=== PATIENT | female | born 1990 | race Caucasian/White ===

== ENCOUNTER 2017-04-05 11:13 | Emergency (ER) | payer SELFPAY ==
[2017-04-05 11:21] VITALS: BP 129/101
[2017-04-05] MEDS ORDERED: Sodium Chloride 0.9% 1,000 ML ONE (11:40)
[2017-04-05] MEDS ORDERED: Ondansetron 4 MG/2 ML SDV IVPUSH ONE (11:52)
[2017-04-05] MEDS ORDERED: Alum Hydrox/Mag Hydrox/Simeth 30 ML, Lidocaine 2% 15 ML PO STA ×2 (11:52)
[2017-04-05] MEDS ORDERED: Sodium Chloride 0.9% 1,000 ML IV ONE (12:24)
[2017-04-05] MEDS ORDERED: Potassium Chloride 10 MEQ in Premix Bag 1 BAG IV STA (13:04)
[2017-04-05] MEDS ORDERED: Aluminum Hydroxide/Magnesium Hydroxide/Simethicone Susp 30 ML Cup PO ONE (13:18)
--- NOTE | 2017-04-05 13:18 | EDM.PDOC ---
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 Her last drink was around 1:00 to 2:00 this morning. Her last period of sobriety was from 03/30/2017 through 04/01/2017. She states that she vomited last night, then developed retrosternal chest pain around 6:00 this morning. She is unable to describe the character of her pain, other than it is a combination of sharp, burning, and stabbing. She took some [id number] "immune" pills, which did not help. Here in the ED, the patient states that she still has some nausea and chest pain , and feels stressed. She states that she has not previously been to an inpatient alcohol treatment center, although she has previously gone to outpatient treatment, such as and a substance abuse facility in [place]. The last time she attended , however, was when she was 21 years old, and she has received any treatment since moving to [place] a few years ago. She states that she has never been hospitalized related to her alcoholism. The patient does not have a PCP. Middle Chest Pain Score (Numeric/FACES): 8 - Related Data Allergies Allergy/AdvReac Type Severity Reaction Status Date / Time No Known Allergies Allergy Verified 04/05/17 11:21 Home Meds: Home Meds Ondansetron [Zofran ODT] 4 mg PO Q8H PRN #10 tab.dis 04/05/17 [Rx] Past Medical History Psychiatric History: Reports: Addiction (Binge alcoholism) Social & Family History - Tobacco Use Smoking Status *Q: Current Some Day Smoker - Alcohol Use Alcohol Use History: Yes Days Per Week of Alcohol Use: 7 Number of Drinks Per Day: 5 Total Drinks Per Week: 35 Alcohol Use Frequency: Binges - Recreational Drug Use Recreational Drug Use: No - Living Situation & Occupation Living situation: Reports: , with Spouse 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) ED ROS GENERAL - Review of Systems Review Of Systems: See Below Constitutional: Reports: No Symptoms HEENT: Reports: No Symptoms Respiratory: Reports: Cough (occasional) Cardiovascular: Reports: No Symptoms Endocrine: Reports: No Symptoms GI/Abdominal: Reports: No Symptoms : Reports: No Symptoms Musculoskeletal: Reports: No Symptoms Skin: Reports: No Symptoms Neurological: Reports: No Symptoms Psychiatric: Reports: No Symptoms Hematologic/Lymphatic: Reports: No Symptoms Immunologic: Reports: No Symptoms ED EXAM, GENERAL - Physical Exam Exam: See Below Exam Limited By: No Limitations General Appearance: Alert, WD/WN, Anxious (tremulous) Eye Exam: Bilateral Eye: Normal Inspection Ears: Normal External Exam, Hearing Grossly Normal Nose: Normal Inspection, No Blood Throat/Mouth: Normal Inspection, Normal Lips, Normal Voice, No Airway Compromise Head: Atraumatic, Normocephalic Neck: Normal Inspection, Full Range of Motion Respiratory/Chest: No Respiratory Distress, Lungs Clear, Normal Breath Sounds, No Accessory Muscle Use Cardiovascular: Normal Peripheral Pulses, Regular Rate, Rhythm, No Gallop, No JVD, No Murmur, No Rub Peripheral Pulses: 4+: Radial (L), Radial (R) GI/Abdominal: Normal Bowel Sounds, Soft, Non-Tender, No Organomegaly, No Distention, No Abnormal Bruit, No Mass (Female) Exam: Deferred Rectal (Female) Exam: Deferred Back Exam: Normal Inspection, Full Range of Motion, NT Extremities: Normal Inspection, Normal Range of Motion, No Pedal Edema, Normal Capillary Refill Neurological: Alert, Oriented, Normal Cognition, No Motor/Sensory Deficits Psychiatric: Normal Affect, Anxious Skin Exam: Warm, Dry, Intact, Normal Color, No Rash Lymphatic: No Adenopathy Course - Vital Signs Last Recorded V/S: Last Vital Signs Temp 36.6 C 04/05/17 11:17 Pulse 137 H 04/05/17 11:17 Resp 16 04/05/17 11:17 BP 129/101 H 04/05/17 11:17 Pulse Ox 97 04/05/17 11:17 - Orders/Labs/Meds Labs: Laboratory Tests 04/05/17 04/05/17 04/05/17 Range/Units 11:28 11:28 11:28 WBC 10.81 H (3.98-10.04) K/mm3 RBC 4.43 (3.98-5.22) M/mm3 Hgb 13.7 (11.2-15.7) gm/L Hct 41.1 (34.1-44.9) % MCV 92.8 (79.4-94.8) fl MCH 30.9 (25.6-32.2) pg MCHC 33.3 (32.2-35.5) g/dl RDW Std Deviation 53.5 H (36.4-46.3) fL Plt Count 351 (182-369) K/mm3 MPV 10.0 (9.4-12.3) fl Neut % (Auto) 93.9 H (34.0-71.1) % Lymph % (Auto) 1.7 L (19.3-51.7) % Mccormick % (Auto) 4.1 L (4.7-12.5) % Eos % (Auto) 0 L (0.7-5.8) Baso % (Auto) 0.2 (0.1-1.2) % Neut # (Auto) 10.16 H (1.56-6.13) K/mm3 Lymph # (Auto) 0.18 L (1.18-3.74) K/mm3 Mccormick # (Auto) 0.44 H (0.24-0.36) K/mm3 Eos # (Auto) 0.00 L (0.04-0.36) K/mm3 Baso # (Auto) 0.02 (0.01-0.08) K/mm3 Manual Slide Review Abnormal smear Sodium 137 (136-145) mEq/L Potassium 3.1 L (3.5-5.1) mEq/L Chloride 91 L (98-107) mEq/L Carbon Dioxide 25 (21-32) mEq/L Anion Gap 24.1 H (5-15) BUN 11 (7-18) mg/dL Creatinine 0.9 (0.55-1.02) mg/dL Est Cr Clr Drug Dosing 79.34 mL/min Estimated GFR (MDRD) > 60 (>60) mL/min BUN/Creatinine Ratio 12.2 L (14-18) Glucose 137 H (74-106) mg/dL Calcium 10.8 H (8.5-10.1) mg/dL Total Bilirubin 1.4 H (0.2-1.0) mg/dL AST 248 H (15-37) U/L ALT 309 H (14-59) U/L Alkaline Phosphatase 87 (46-116) U/L Total Protein 9.5 H (6.4-8.2) g/dl Albumin 5.3 H (3.4-5.0) g/dl Globulin 4.2 gm/dL Albumin/Globulin Ratio 1.3 (1-2) Lipase 672 H (73-393) U/L Urine Color (Yellow) Urine Appearance (Clear) Urine pH (5.0-8.0) Ur Specific [place] (1.005-1.030) Urine Protein (Negative) Urine Glucose (UA) (Negative) Urine Ketones (Negative) Urine Occult Blood (Negative) Urine Nitrite (Negative) Urine Bilirubin (Negative) Urine Urobilinogen (0.2-1.0) Ur Leukocyte Esterase (Negative) Urine RBC (0-5) /hpf Urine WBC (0-5) /hpf Ur Epithelial Cells (0-5) /hpf Urine Bacteria (FEW) /hpf Urine Mucus (FEW) /hpf Urine HCG, Qual (NEGATIVE) Urine Opiates Screen (NEGATIVE) Ur Buprenorphine Scrn (NEGATIVE) Ur Oxycodone Screen (NEGATIVE) Urine Methadone Screen (NEGATIVE) Ur Propoxyphene Screen (NEGATIVE) Ur Barbiturates Screen (NEGATIVE) Ur Tricyclics Screen (NEGATIVE) Ur Phencyclidine Scrn (NEGATIVE) Ur Amphetamine Screen (NEGATIVE) U Methamphetamines Scrn (NEGATIVE) U Benzodiazepines Scrn (NEGATIVE) U Cocaine Metab Screen (NEGATIVE) U Marijuana (THC) Screen (NEGATIVE) Ethyl Alcohol 0.01 (0.00) gm% 04/05/17 04/05/17 04/05/17 Range/Units 12:10 12:10 12:10 WBC (3.98-10.04) K/mm3 RBC (3.98-5.22) M/mm3 Hgb (11.2-15.7) gm/L Hct (34.1-44.9) % MCV (79.4-94.8) fl MCH (25.6-32.2) pg MCHC (32.2-35.5) g/dl RDW Std Deviation (36.4-46.3) fL Plt Count (182-369) K/mm3 MPV (9.4-12.3) fl Neut % (Auto) (34.0-71.1) % Lymph % (Auto) (19.3-51.7) % Mccormick % (Auto) (4.7-12.5) % Eos % (Auto) (0.7-5.8) Baso % (Auto) (0.1-1.2) % Neut # (Auto) (1.56-6.13) K/mm3 Lymph # (Auto) (1.18-3.74) K/mm3 Mccormick # (Auto) (0.24-0.36) K/mm3 Eos # (Auto) (0.04-0.36) K/mm3 Baso # (Auto) (0.01-0.08) K/mm3 Manual Slide Review Sodium (136-145) mEq/L Potassium (3.5-5.1) mEq/L Chloride (98-107) mEq/L Carbon Dioxide (21-32) mEq/L Anion Gap (5-15) BUN (7-18) mg/dL Creatinine (0.55-1.02) mg/dL Est Cr Clr Drug Dosing mL/min Estimated GFR (MDRD) (>60) mL/min BUN/Creatinine Ratio (14-18) Glucose (74-106) mg/dL Calcium (8.5-10.1) mg/dL Total Bilirubin (0.2-1.0) mg/dL AST (15-37) U/L ALT (14-59) U/L Alkaline Phosphatase (46-116) U/L Total Protein (6.4-8.2) g/dl Albumin (3.4-5.0) g/dl Globulin gm/dL Albumin/Globulin Ratio (1-2) Lipase (73-393) U/L Urine Color Yellow (Yellow) Urine Appearance Clear (Clear) Urine pH 6.0 (5.0-8.0) Ur Specific [place] > or = 1.030 (1.005-1.030) Urine Protein 3+ H (Negative) Urine Glucose (UA) Negative (Negative) Urine Ketones 3+ H (Negative) Urine Occult Blood Negative (Negative) Urine Nitrite Negative (Negative) Urine Bilirubin Negative (Negative) Urine Urobilinogen 0.2 (0.2-1.0) Ur Leukocyte Esterase Negative (Negative) Urine RBC 0-5 (0-5) /hpf Urine WBC 5-10 H (0-5) /hpf Ur Epithelial Cells 5-10 H (0-5) /hpf Urine Bacteria Few (FEW) /hpf Urine Mucus Many H (FEW) /hpf Urine HCG, Qual Negative (NEGATIVE) Urine Opiates Screen Negative (NEGATIVE) Ur Buprenorphine Scrn Negative (NEGATIVE) Ur Oxycodone Screen Negative (NEGATIVE) Urine Methadone Screen Negative (NEGATIVE) Ur Propoxyphene Screen Negative (NEGATIVE) Ur Barbiturates Screen Negative (NEGATIVE) Ur Tricyclics Screen Negative (NEGATIVE) Ur Phencyclidine Scrn Negative (NEGATIVE) Ur Amphetamine Screen Negative (NEGATIVE) U Methamphetamines Scrn Negative (NEGATIVE) U Benzodiazepines Scrn Negative (NEGATIVE) U Cocaine Metab Screen Negative (NEGATIVE) U Marijuana (THC) Screen Negative (NEGATIVE) Ethyl Alcohol (0.00) gm% Meds: Medications Discontinued Medications Generic Name Dose Route Start Last Admin Trade Name Freq PRN Reason Stop Dose Admin Al Hydroxide/Mg Hydroxide 30 ml 04/05/17 13:18 04/05/17 13:29 Mag-Al Plus PO 04/05/17 13:19 30 ml ONETIME ONE Administration Al Hydroxide/Mg Hydroxide 30 0 ml 04/05/17 11:52 04/05/17 12:09 ml/ Lidocaine HCl 15 ml PO 04/05/17 11:53 45 ml ONETIME STA Administration Sodium Chloride Confirm 04/05/17 11:40 04/05/17 11:56 Normal Saline Administered 04/05/17 11:41 Not Given Dose 1,000 mls @ as directed .ROUTE .STK-MED ONE Sodium Chloride 1,000 mls @ 999 mls/hr 04/05/17 12:24 04/05/17 12:26 Normal Saline IV 04/05/17 13:24 999 mls/hr ONETIME ONE Administration Potassium Chloride 10 meq/ 100 mls @ 100 mls/hr 04/05/17 13:04 04/05/17 13:15 Premix IV 04/05/17 14:03 100 mls/hr ONETIME STA Administration Ondansetron HCl 4 mg 04/05/17 11:52 04/05/17 11:58 Zofran IVPUSH 04/05/17 11:53 4 mg ONETIME ONE Administration - Re-Assessments/Exams Free Text/Narrative Re-Assessment/Exam: 04/05/17 13:17 The patient states that the GI cocktail that she received earlier improved her symptoms significantly, although she has some residual heartburn. I will order some additional Maalox. Her potassium returned low at 3.1. Because oral potassium can cause nausea, and the patient is already suffering from nausea, I have ordered some IV potassium replacement. 04/05/17 14:38 Test results discussed with the patient. Her potassium has finished infusing. She received 1 L of normal saline during this visit. Her transaminases are modestly elevated, but not an alcoholic pattern. I suspect that she has hepatic steatosis, possibly related to her alcoholism. Her lipase is elevated at 672, but this is less than 3 times the upper limit of normal, which, along with either characteristic pain or inflammation on an imaging study, could be used to diagnose pancreatitis, however, the patient does not have signs or symptoms of pancreatitis, therefore this elevation is meaningless. I will e-prescribe Zofran, and I am recommending that she take [id number] Gaviscon for what appears to be esophagitis secondary to vomiting. I will refer her to [facility] to address her alcoholism. Departure - Departure Time of Disposition: 14:41 Disposition: Home, Self-Care 01 Condition: Good Clinical Impression: Alcoholism, Esophagitis - Discharge Information Forms: ED Department Discharge Additional Instructions: You were seen in the emergency room for chest pain after vomiting last night. Workup in the ER included blood work, a urinalysis, a urine test, and a urine drug screen. Your workup was remarkable for your potassium being low at 3.1, mild elevation of your liver enzymes, and modest elevation of your lipase. The remainder of your workup was unremarkable. Your chest pain is MOST LIKELY due to esophagitis = inflammation of your esophagus from stomach acid, when you vomited. You were treated with IV potassium, IV fluid, and IV Zofran. You received a GI cocktail and oral Maalox. We recommend you take [id number] Gaviscon, as directed on the label, to treat your heartburn. You may dissolve one tablet of the anti-nausea medicine Zofran on your tongue up to every 8 hours, as needed for nausea/vomiting. We STRONGLY recommend that you seek treatment for your alcoholism at [place] [address] [address] Angela Kaur [phone] If any other problems, please do not hesitate to return to the ER.
== END 2017-04-05 14:59 | disposition home or self-care (01) ==
LOC: JD.ED 11:13
DX: F10.20 Alcohol dependence, uncomplicated (principal); K20.9 Esophagitis, unspecified; F17.210 Nicotine dependence, cigarettes, uncomplicated; Y90.5 Blood alcohol level of 100-119 mg/100 ml
CPT/HCPCS: 36415; 80053; 80306; 81001; 81025; 83690; 85025; 96361; 96365; 96375; 99285; A9270; G0480; J2405; J3480; J7040; 99284